=== PATIENT | female | born 1950 | race Caucasian/White ===

== ENCOUNTER → 2025-07-27 | Outpatient (CLI) | payer MEDICARE, OTHER, SELFPAY ==
--- NOTE | 2025-07-27 10:05 | RAD_ITS ---
PROCEDURE: CHEST PA AND LATERAL 07/27/2025 REASON FOR EXAM: PAIN TECHNIQUE: Procedure Code: RADCXR Modality: DX Procedure: CHEST PA AND LATERAL COMPARISON: None FINDINGS: Hardware: None Heart: Heart size and configuration are within normal limits. Arteriosclerotic vascular disease of the aorta is noted. Mediastinum: Mediastinal silhouette is within normal limits. Trachea is midline. Pulmonary vasculature is unremarkable. Lungs: Lungs are expanded and clear without evidence of atelectasis, pneumothorax, lung contusion, pleural effusion or pneumonic infiltrate. Bones: No acute osseous abnormality is noted. Degenerative changes of the thoracic spine are noted. There is slight increased kyphotic curvature of the thoracic spine. Surgical clips are seen in the gallbladder fossa. RAD/Chest PA and Lateral IMPRESSION: No acute cardiopulmonary process is identified radiographically. Reading Location: [id number]
--- NOTE | 2025-07-27 10:05 | RAD_ITS ---
PROCEDURE: PELVIS 1 OR 2 VIEWS 07/27/2025 REASON FOR EXAM: PAIN TECHNIQUE: Procedure Code: RADPEL Modality: DX Procedure: PELVIS 1 OR 2 VIEWS COMPARISON: None FINDINGS: Hardware: None Bones: There is normal mineralization of the lower lumbar spine, bony pelvis and both hips. There are no acute fractures or dislocations. Joints: Mild osteoarthritic changes of the right hip joint are noted. Mild osteoarthritic changes of the left hip joint are noted. Bilateral SI joints are unremarkable. Pubic symphysis is unremarkable. Soft tissues: No appreciable soft tissue swelling is noted. Other: The patient appears to be mildly constipated. There are several mildly dilated gas-filled loops of small bowel seen compatible with an ileus. There is no evidence of bowel obstruction at this time. 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 The patient appears to be mildly constipated. Very mild small bowel ileus without evidence of obstruction. Reading Location: [id number]
--- NOTE | 2025-07-27 10:05 | RAD_ITS ---
PROCEDURE: CHEST PA AND LATERAL 07/27/2025 REASON FOR EXAM: PAIN TECHNIQUE: Procedure Code: RADCXR Modality: DX Procedure: CHEST PA AND LATERAL COMPARISON: None FINDINGS: Hardware: None Heart: Heart size and configuration are within normal limits. Arteriosclerotic vascular disease of the aorta is noted. Mediastinum: Mediastinal silhouette is within normal limits. Trachea is midline. Pulmonary vasculature is unremarkable. Lungs: Lungs are expanded and clear without evidence of atelectasis, pneumothorax, lung contusion, pleural effusion or pneumonic infiltrate. Bones: No acute osseous abnormality is noted. Degenerative changes of the thoracic spine are noted. There is slight increased kyphotic curvature of the thoracic spine. Surgical clips are seen in the gallbladder fossa. RAD/Chest PA and Lateral IMPRESSION: No acute cardiopulmonary process is identified radiographically. Reading Location: [id number]
--- NOTE | 2025-07-27 10:05 | RAD_ITS ---
EXAM: XR Right Hand Complete, 3 or More Views CLINICAL INDICATION: PAIN TECHNIQUE: Frontal, lateral and oblique views of the right hand. COMPARISON: No relevant prior studies available. FINDINGS: BONES/JOINTS: Mild degenerative change of the 1st carpometacarpal joint. No acute fracture. No dislocation. SOFT TISSUES: Soft tissue swelling. RAD/Hand Min 3 Views IMPRESSION: Soft tissue swelling. Reading Location: [id number]
--- NOTE | 2025-07-27 10:05 | RAD_ITS ---
PROCEDURE: PELVIS 1 OR 2 VIEWS 07/27/2025 REASON FOR EXAM: PAIN TECHNIQUE: Procedure Code: RADPEL Modality: DX Procedure: PELVIS 1 OR 2 VIEWS COMPARISON: None FINDINGS: Hardware: None Bones: There is normal mineralization of the lower lumbar spine, bony pelvis and both hips. There are no acute fractures or dislocations. Joints: Mild osteoarthritic changes of the right hip joint are noted. Mild osteoarthritic changes of the left hip joint are noted. Bilateral SI joints are unremarkable. Pubic symphysis is unremarkable. Soft tissues: No appreciable soft tissue swelling is noted. Other: The patient appears to be mildly constipated. There are several mildly dilated gas-filled loops of small bowel seen compatible with an ileus. There is no evidence of bowel obstruction at this time. 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 The patient appears to be mildly constipated. Very mild small bowel ileus without evidence of obstruction. Reading Location: [id number]
--- NOTE | 2025-07-27 10:05 | RAD_ITS ---
EXAM: XR Right Hand Complete, 3 or More Views CLINICAL INDICATION: PAIN TECHNIQUE: Frontal, lateral and oblique views of the right hand. COMPARISON: No relevant prior studies available. FINDINGS: BONES/JOINTS: Mild degenerative change of the 1st carpometacarpal joint. No acute fracture. No dislocation. SOFT TISSUES: Soft tissue swelling. RAD/Hand Min 3 Views IMPRESSION: Soft tissue swelling. Reading Location: [id number]
--- NOTE | 2025-07-27 10:05 | RAD_ITS ---
PROCEDURE: HAND MIN 3 VIEWS 07/27/2025 REASON FOR EXAM: PAIN Arthritis. 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 There are no fractures or dislocations. Joints: Very mild arthritic changes are seen involving the D IP joints of the 2nd, 3rd, 4th and 5th digits. The remaining joint spaces are well preserved. Soft tissues: No appreciable soft tissue swelling is noted. RAD/Hand Min 3 Views IMPRESSION: Very mild arthritic changes involving the 2nd, 3rd, 4th and 5th DIP joints of t he left hand. Reading Location: [id number]
--- NOTE | 2025-07-27 10:05 | RAD_ITS ---
PROCEDURE: HAND MIN 3 VIEWS 07/27/2025 REASON FOR EXAM: PAIN Arthritis. 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 There are no fractures or dislocations. Joints: Very mild arthritic changes are seen involving the D IP joints of the 2nd, 3rd, 4th and 5th digits. The remaining joint spaces are well preserved. Soft tissues: No appreciable soft tissue swelling is noted. RAD/Hand Min 3 Views IMPRESSION: Very mild arthritic changes involving the 2nd, 3rd, 4th and 5th DIP joints of t he left hand. Reading Location: [id number]
[2025-07-27 12:37] LABS: Hematocrit 45.9 % (37-47); Hemoglobin 15.6 g/dL (12.0-15.0); Immature Granulocytes Count 0.020 X10^3/uL (0.0-0.0); Mean Corp Hgb Conc 34.0 g/dL (32-36); Mean Corpuscular Volume 91.3 fL (81-99); Mean Platelet Vol. 12.3 fl (6.2-12.0); NRBC Flagged by Analyzer 0 % (0-5); Platelet Count 231 K/mm3 (150-450); RBC Distribution Width CV 11.9 % (11.6-14.6); RBC Distribution Width SD 39.0 fl (35.1-43.9); Red Blood Count 5.03 M/mm3 (4.2-5.4); White Blood Count 8.0 K/mm3 (4.4-11.0)
[2025-07-27 13:46] LABS: AST(SGOT) 25 U/L (<=31); Alanine Aminotransfer ALT/SGPT 21 U/L (<=34); Albumin, Serum 4.5 g/dL (3.4-4.8); Alkaline Phosphatase 60 U/L (35-104); Anion Gap 13 (5-15); BUN 18 mg/dL (4-19); BUN/Creat Ratio 23.5 RATIO (10-20); Calcium,Total 9.7 mg/dL (7.6-11.0); Carbon Dioxide 26.0 mmol/L (21.0-32.0); Chloride 103 mmol/L (98-108); Globulin 3.0 g/dL (2.2-4.2); Glucose 81 mg/dL (70-99); Hepatitis B Surface Antigen Nonreactive (Nonreactive); Hepatitis C Antibody Nonreactive (Nonreactive); Potassium 3.8 mmol/L (3.3-5.1); Vitamin D,25 Hydroxy 91.9 ng/mL (30-100)
[2025-07-27 13:51] LABS: CRP < 3.00 mg/L (0.0-3.0)
== END | disposition home or self-care (01) ==
LOC: MTLAB 10:01
PROVIDERS: PCP Family Medicine; Referring Provider Internal Medicine Rheumatology; Visit Provider Internal Medicine Rheumatology
DX: M05.79 Rheumatoid arthritis with rheumatoid factor of multiple sites without organ or systems involvement (principal); Z79.899 Other long term (current) drug therapy
CPT/HCPCS: 36415; 71046; 72170; 73130; 80053; 82306; 85025; 85652; 86140; 86200; 86431; 86706; 86803; 87340